=== PATIENT | male | born 1965 | race African-American/Black ===

== ENCOUNTER 2017-01-25 11:52 | Emergency (ER) | payer SELFPAY ==
[~2017-01-25] VITALS: Ht 170.2 cm; Wt 96.0 kg
[~2017-01-25 11:52] MED LIST: NO HOME MEDICATIONS; ROBAXIN 50500 MG/TAB PO
[2017-01-25 12:11] VITALS: BP 151/101; TEMP 98.4
[2017-01-25] MEDS ORDERED: POLYMYXIN B/TRIMETH OU (16:07)
[2017-01-25 16:18] VITALS: PULSE 67
== END 2017-01-25 16:18 | disposition home or self-care (01) ==
LOC: COL.ER 11:52
DX: J02.9 Acute pharyngitis, unspecified (principal); H10.9 Unspecified conjunctivitis; J06.9 Acute upper respiratory infection, unspecified; F17.210 Nicotine dependence, cigarettes, uncomplicated

== ENCOUNTER 2017-05-26 14:53 | Emergency (ER) | payer SELFPAY ==
[~2017-05-26] VITALS: Ht 170.2 cm; Wt 100.9 kg
[~2017-05-26 14:53] MED LIST changes: +POLYMYXIN B/TRIMETH OU
[2017-05-26 14:54] VITALS: BP 143/94; TEMP 98.7
[2017-05-26] MEDS ORDERED: BONINE25 MG PO (15:42)
[2017-05-26 15:57] VITALS: PULSE 75
== END 2017-05-26 15:57 | disposition home or self-care (01) ==
LOC: COL.ER 14:53
DX: H83.02 Labyrinthitis, left ear (principal); H81.22 Vestibular neuronitis, left ear; F17.210 Nicotine dependence, cigarettes, uncomplicated

== ENCOUNTER → 2017-07-16 | Outpatient (CLI) | payer SELFPAY ==
[~2017-07-16] MED LIST changes: +BONINE25 MG PO
== END ==
LOC: COL.RAD 09:00
DX: M94.261 Chondromalacia, right knee (principal); M25.461 Effusion, right knee; M23.8X1 Other internal derangements of right knee; M23.251 Derangement of posterior horn of lateral meniscus due to old tear or injury, right knee; M23.203 Derangement of unspecified medial meniscus due to old tear or injury, right knee

== ENCOUNTER 2017-10-06 12:50 | Day surgery (SDC) | payer OTHER ==
[~2017-10-06] VITALS: Ht 172.7 cm; Wt 99.2 kg
[2017-10-06 13:48] VITALS: BP 130/91; PULSE 86; TEMP 98.6
[2017-10-06 15:35] VITALS: BP 173/109; PULSE 86
[2017-10-06 15:45] VITALS: BP 164/105; PULSE 88
[2017-10-06 16:00] VITALS: BP 158/94; PULSE 78
[2017-10-06 16:02] VITALS: BP 163/123; PULSE 89
== END 2017-10-06 16:25 | disposition home or self-care (01) ==
LOC: SDCO 12:50
DX: Z12.11 Encounter for screening for malignant neoplasm of colon (principal); Z80.0 Family history of malignant neoplasm of digestive organs
CPT/HCPCS: OP; J2250; J3010; J7030

== ENCOUNTER → 2017-10-19 | Outpatient (CLI) | payer OTHER ==
[2017-10-19 10:01] LABS: ALBUMIN 4.6 gm/dL (3.5-5.0); BILIRUBIN,TOTAL 0.6 mg/dL (0.0-1.0); CALCIUM 9.3 mg/dL (8.4-10.2); CREATININE, serum 1.1 mg/dL (0.66-1.25); POTASSIUM 4.2 mmol/L (3.4-5.0); TOTAL PROTEIN 7.5 gm/dL (6.4-8.2)
== END ==
LOC: COL.LAB 08:51
PROVIDERS: Ophthalmology
DX: C18.9 Malignant neoplasm of colon, unspecified (principal); I10 Essential (primary) hypertension

== ENCOUNTER → 2018-01-29 | Outpatient (CLI) | payer SELFPAY | LOC: COL.VAS 10:20 | DX: I08.8 Other rheumatic multiple valve diseases (principal) ==

== ENCOUNTER 2018-03-22 11:15 | Outpatient (RCR) | payer SELFPAY | END 2018-04-07 | disposition home or self-care (01) | LOC: WSPT | DX: M25.562 Pain in left knee (principal); M25.561 Pain in right knee ==

== ENCOUNTER → 2018-03-22 | Outpatient (CLI) | payer SELFPAY ==
[2018-03-22 08:58] LABS: COLLECTION METHOD CLEAN CATCH
[2018-03-22 09:02] LABS: HEMATOCRIT 43.7 % (42.0-52.0); HEMOGLOBIN 14.6 g/dl (13.5-18.0); MEAN CELL VOLUME 92 fl (80.0-100.0); MEAN CORPUSCULAR HEMOGLOBIN 31 pg (27.0-31.0); MEAN CORPUSCULAR HGB CONC 33 g/dl (33.0-37.0); MEAN PLATELET VOLUME 10.4 fl (7.4-10.4); PLATELET COUNT 275 K/mm3 (130-400); RED BLOOD COUNT 4.76 M/mm3 (4.20-5.60); REDCELL DISTRIBUTION WIDTH-CV 12.5 % (11.5-14.5)
[2018-03-22 09:13] LABS: ALBUMIN 4.1 gm/dL (3.5-5.0); BILIRUBIN,TOTAL 0.5 mg/dL (0.0-1.0); CALCIUM 9.2 mg/dL (8.4-10.2); CREATININE, serum 0.94 mg/dL (0.66-1.25); MAGNESIUM 2.1 mg/dL (1.6-2.3); TOTAL PROTEIN 7.6 gm/dL (6.4-8.2)
[2018-03-22 09:14] LABS: PH 5 (5-8); SQUAMOUS EPITHELIAL None Seen /hpf; URINE APPEARANCE Clear; URINE BACTERIA None Seen /hpf; URINE BILIRUBIN Negative (NEGATIVE); URINE BLOOD Negative (NEGATIVE); URINE COLOR Yellow; URINE GLUCOSE Negative (NEGATIVE); URINE KETONE Negative (NEGATIVE); URINE LEUKOCYTE ESTERASE Negative (NEGATIVE); URINE NITRATE Negative (NEGATIVE); URINE PROTEIN(semi-quant) Negative (NEGATIVE); URINE RBC 0-2 /hpf; URINE UROBILINOGEN Negative (NEGATIVE); URINE WBC 0-2 /hpf
[2018-03-22 09:43] LABS: THYROID STIMULATING HORMONE 0.798 uIU/mL (0.465-4.680)
== END ==
LOC: COL.LAB 07:47
PROVIDERS: Family Medicine
DX: R25.2 Cramp and spasm (principal); G89.29 Other chronic pain; I10 Essential (primary) hypertension

== ENCOUNTER 2018-05-20 13:15 | Outpatient (RCR) | payer SELFPAY | END 2018-08-02 | disposition home or self-care (01) | LOC: WSPT | DX: M25.562 Pain in left knee (principal); M25.561 Pain in right knee ==

== ENCOUNTER → 2018-09-28 | Outpatient (CLI) | payer SELFPAY | LOC: COL.RAD 09:36 | DX: M17.12 Unilateral primary osteoarthritis, left knee (principal) ==

== ENCOUNTER 2018-11-16 10:05 | Outpatient (CLI) | payer OTHER | END 2018-11-16 13:17 | disposition home or self-care (01) | LOC: COL.RAD 10:05 | DX: G56.93 Unspecified mononeuropathy of bilateral upper limbs (principal); M25.78 Osteophyte, vertebrae; M48.02 Spinal stenosis, cervical region; Z98.1 Arthrodesis status ==

== ENCOUNTER 2019-06-22 10:30 | Outpatient (RCR) | payer SELFPAY ==
[~2019-06-22 10:30] MED LIST changes: +BENADRYL50 MG PO; +NORCO 325 MG-51 TAB PO; +NORVASC 5MG5 MG/TAB PO; +PREDNISONE10 MG PO
== END 2019-08-08 14:12 | disposition home or self-care (01) ==
LOC: WSC 10:30
DX: M48.02 Spinal stenosis, cervical region (principal); F17.210 Nicotine dependence, cigarettes, uncomplicated

== ENCOUNTER 2019-10-27 09:45 | Outpatient (RCR) | payer MEDICARE | END 2019-11-16 08:47 | disposition home or self-care (01) | LOC: WSPT 09:45 | DX: M17.11 Unilateral primary osteoarthritis, right knee (principal); Z96.651 Presence of right artificial knee joint ==

== ENCOUNTER 2019-12-09 10:25 | Outpatient (RCR) | payer MEDICARE | END 2020-01-04 08:15 | disposition home or self-care (01) | LOC: WSPT 10:25 | DX: M17.12 Unilateral primary osteoarthritis, left knee (principal); Z96.652 Presence of left artificial knee joint ==

== ENCOUNTER 2020-04-18 10:00 | Outpatient (RCR) | payer MEDICARE | END 2020-05-06 | disposition home or self-care (01) | LOC: WSPT | DX: M17.12 Unilateral primary osteoarthritis, left knee (principal); Z96.652 Presence of left artificial knee joint ==

== ENCOUNTER 2020-07-11 10:00 | Outpatient (RCR) | payer MEDICARE | END 2020-07-19 09:22 | disposition home or self-care (01) | LOC: WSPT 10:00 | DX: Z96.651 Presence of right artificial knee joint (principal) ==